=== PATIENT | female | born 1970 | race Caucasian/White ===

== ENCOUNTER 2016-07-07 22:44 | Inpatient (IN) | payer BC ==
[~2016-07-07] VITALS: Ht 157.5 cm; Wt 86.9 kg
[2016-07-08] VITALS (7 sets, daily range): BP systolic 101–146; RESP 14–18; TEMP 98.1–98.7; Ht 157.5 cm; Wt 86.9 kg
[2016-07-08] MEDS ORDERED: PHARMACY TO DOSE SUBQ STA (01:47)
[2016-07-08] MEDS ORDERED: ASPIRIN 81 MG CHEW TAB PO STA (01:47)
[2016-07-08] MEDS ORDERED: ALU/MAG/SIM 30 ML UDC PO PRN (01:50)
[2016-07-08] MEDS ORDERED: DOCUSATE SOD 100 MG CAP PO PRN (01:50)
[2016-07-08] MEDS ORDERED: ACETAMINOPHEN 325 MG TAB PO PRN (01:50)
[2016-07-08] MEDS ORDERED: NITROGLYCERIN SL 0.4 MG TAB SL PRN (01:50)
[2016-07-08] MEDS ORDERED: TEMAZEPAM 7.5 MG CAP PO PRN (01:50)
[2016-07-08] MEDS ORDERED: SALINE FLUSH 10 ML FLUSH PRN ×2 (01:50→17:40)
[2016-07-08] MEDS ORDERED: LORAZEPAM 0.5 MG TAB PO PRN ×2 (01:50→17:40)
[2016-07-08] MEDS ORDERED: ONDANSETRON 4 MG VIAL IV PRN (01:50)
[2016-07-08] MEDS: ENOXAPARIN 80 MG/0.8 ML SYR SUBQ SCH ×2 (02:25→14:38)
[2016-07-08] MEDS: SODIUM CHLORIDE 0.9% FLUSH BAG 500 ML IV SCH ×2 (02:31→17:58)
[2016-07-08] MEDS: TEMAZEPAM 15 MG CAP PO PRN (02:54)
[2016-07-08] MEDS: SALINE FLUSH 10 ML FLUSH SCH ×3 (07:47→19:55)
[2016-07-08] MEDS ORDERED: Ibuprofen 600 MG TAB PO PRN (17:20)
[2016-07-08] MEDS ORDERED: TEMAZEPAM 15 MG CAP PO PRN (21:00)
[2016-07-09] VITALS (18 sets, daily range): BP systolic 109–142; RESP 16–18; TEMP 97.7–98.3
[2016-07-09] MEDS: TEMAZEPAM 15 MG CAP PO PRN (00:28)
[2016-07-09] MEDS: ENOXAPARIN 80 MG/0.8 ML SYR SUBQ SCH (02:25)
[2016-07-09] MEDS ORDERED: DIAZEPAM 5 MG TAB PO ONE (06:00)
[2016-07-09] MEDS ORDERED: SODIUM CHLORIDE 0.9% FLUSH BAG 500 ML IV SCH (06:00)
[2016-07-09] MEDS ORDERED: LIDOCAINE 1% 20ML ONE (07:00)
[2016-07-09] MEDS ORDERED: FENTANYL 100 MCG/2 ML AMP ONE (07:00)
[2016-07-09] MEDS ORDERED: MEPERIDINE 50 MG/ML ONE (07:00)
[2016-07-09] MEDS ORDERED: LIDOCAINE 2% 20 ML ONE (07:00)
[2016-07-09] MEDS ORDERED: MIDAZOLAM 2 MG/2 ML INJ ONE (07:00)
[2016-07-09] MEDS: SALINE FLUSH 10 ML FLUSH SCH ×2 (08:00→08:51)
[2016-07-09] MEDS ORDERED: ASPIRIN 81 MG CHEW TAB PO SCH (08:00)
[2016-07-09] MEDS ORDERED: DULoxetine 30 MG CAP PO SCH (09:00)
[2016-07-09] MEDS ORDERED: FLUOXETINE 10 MG CAP PO SCH (09:00)
== END 2016-07-09 14:15 | disposition home or self-care (01) | DRG 287 ==
LOC: ENRESERVDT → ENRESERVTM → CANRESERV → EMR 22:44 → UNDOADMOB 22:44 → OBSVTOIN 07-08 01:32 → PCU 07-08 01:32 → ENPENDDIS 07-09 04:16 → INTOOBSV 07-09 04:16 → OBSVTOIN 07-09 04:16
PROVIDERS: ADMIT Internal Medicine; ATTEND Internal Medicine
PROC: 4A023N7 Measurement of Cardiac Sampling and Pressure, Left Heart, Percutaneous Approach (ICD-10-PCS; principal; 2016-07-09)
PROC: B2101ZZ Fluoroscopy of Single Coronary Artery using Low Osmolar Contrast (ICD-10-PCS; 2016-07-09)
CPT/HCPCS: 80053; 80061; 82550; 84484; 85025; 85379; 93005; 93306; 93458; 94799; 99219